=== PATIENT | male | born 1960 | race Caucasian/White ===

== ENCOUNTER → 2017-08-10 | Outpatient (CLI) | payer SELFPAY ==
--- NOTE | 2017-08-10 17:01 | US ---
EXAMINATION TYPE: US thyroid st tissue head/neck DATE OF EXAM: 08/10/2017 COMPARISON: NONE CLINICAL HISTORY: R59.0 Cervial Lymphadenopathy. Hypervascular submandibular lymph node measuring 1.2 x 0.9 x 1.3cm Exam is limited to the submandibular region which was the area of concern. A single right-sided subma ndibular lymph node is demonstrated that measures 12 x 9 mm and shows relative hyperemia. No other so lid or cystic masses identified. CONCLUSION: Single right-sided submandibular lymph node with increased vascularity.
== END | disposition home or self-care (01) ==
LOC: RADUSMAIN 15:49
PROVIDERS: ATTEND Family Medicine
DX: R59.0 Localized enlarged lymph nodes (principal)
CPT/HCPCS: 76536

== ENCOUNTER → 2017-09-25 | Outpatient (CLI) | payer SELFPAY ==
--- NOTE | 2017-09-26 08:55 | CT ---
EXAMINATION TYPE: CT ChestAbdPelvis w con DATE OF EXAM: 09/25/2017 INDICATION: Observation for mets, Recent lymphoma diagnosis COMPARISON: NONE CT DLP: 1856 mGycm CONTRAST: Performed with Oral Contrast and with IV Contrast, patient injected with 100 mL of Isovue 300. TECHNIQUE: Axial images at 5 mm thick sections. Reconstructed images in the coronal plane. Delayed images through the kidneys. FINDINGS: CT CHEST: Distal left jugular vein appears prominent. Portion of the thyroid visualized is normal. No suspicious axillary adenopathy is evident. Supraclavi cular regions appear within normal limits. No suspicious lung nodules or focal infiltrates are present. There is a 1.1 cm pretracheal lymph node. No enlarged hilar or subcarinal lymphadenopathy is evident. The ascending aorta diameter at the level of the main pulmonary artery is 3.2 cm. The main pulmonary artery diameter at the bifurcation is 2.[address] ABDOMEN: Liver: There is a 0.6 cm hypodensity within the mid medial right lobe liver. This may be a hepatic cy st. Other etiologies are not excluded. Additional similar hypodensity measuring 0.6 cm in the inferio r right lobe liver. Spleen: Normal Pancreas: Normal Adrenal glands: The adrenal glands are normal. Gallbladder: Normal Kidneys: No masses are evident. No hydronephrosis is present. No cysts are present. Delayed images were obtained through the kidneys, which remain unremarkable. There is a right retrocaval renal anthony ry. Aorta: Normal . A few periaortic small shotty lymph nodes may be present. Enlarged adenopathy is not identified. Inferior vena cava: Normal. CT PELVIS: No suspicious pelvic adenopathy is evident. Inguinal regions without enlarged lymphadenopa thy. A few shoddy lymph nodes are in the inguinal region. Loops of bowel within the abdomen and pelvis are normal. There are loops of bowel which are incom pletely distended or lack oral contrast limiting their evaluation. Fecal bolus at the level of the re ctum. Appendix: Normal as visualized. Urinary bladder: Normal. Genitourinary structures: Prostate is prominent mass some inferior depression of the urinary bladder. Osseous structures: No suspicious lytic or sclerotic lesions. Facet changes are in the lower lumbar s pine. IMPRESSIONS: 1. There is a 1.1 cm lymph node in the pretracheal space. 2. Additional enlarged lymphadenopathy is not identified within the chest abdomen or pelvis. PET CT m ay be more sensitive for more subtle lymphoma involved lymph nodes.
== END ==
LOC: RADCTMAIN 17:11
PROVIDERS: ATTEND Internal Medicine Hematology & Oncology
DX: Z03.89 Encounter for observation for other suspected diseases and conditions ruled out (principal); C82.11 Follicular lymphoma grade II, lymph nodes of head, face, and neck
CPT/HCPCS: 71260; 74177; Q9967

== ENCOUNTER → 2021-10-25 | Outpatient (CLI) | payer BC ==
--- NOTE | 2021-10-25 10:28 | CT ---
EXAMINATION TYPE: CT ChestAbdPelvis w con CT DLP: 2219.7 (neck chest abd pelvis) mGycm, Automated exposure control for dose reduction was used. 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 Two-dimensional coronal and sagittal reconstructions were obtained. Findings: CHEST: LUNGS/ PLEURA: The lung parenchyma appears unremarkable. AIRWAY: Patent and unremarkable.. HEART: Size within normal limits. MEDIASTINUM: No gross evidence of adenopathy. VASCULATURE: No aortic aneurysm. MUSCULOSKELETAL: No acute osseous abnormalities. SOFT TISSUES/LYMPH NODES: Interval increase in size of bilateral axillary lymph nodes when compared t o an 2018, example includes a right lymph node measuring up to 14 mm in short axis previously 7 mm. O n the left example includes a 14 mm in short axis, previously 7 mm. ABDOMEN: ABDOMEN LIVER: Scattered hypodensities consistent with cysts. GALLBLADDER AND BILE DUCTS: Unremarkable. PANCREAS: Unremarkable. SPLEEN: Unremarkable. ADRENAL GLANDS: Unremarkable. KIDNEYS AND URETERS: No evidence of hydronephrosis or renal calculus. The ureters are unremarkable. PELVIS BLADDER: Unremarkable REPRODUCTIVE: Prostate is enlarged in size measuring 5.2 cm in transverse dimension. ABDOMEN & PELVIS STOMACH AND BOWEL: Appendix is normal. Scattered diverticula are noted throughout the colon. No evide nce of bowel obstruction. PERITONEUM: No evidence of pneumoperitoneum or free fluid. VASCULATURE: No evidence of aortic aneurysm. MUSCULOSKELETAL: No acute osseous abnormalities. Stable T11 area of subtle sclerosis measuring up to 15 mm. Stable bony islands within the L2 vertebrae. LYMPH NODES: Interval increase in size of periaortic lymph nodes comparing to 2018 measuring up to 12 mm in short axis in the left periaortic region as well as a bilateral common iliac artery lymph node measuring up to 8 mm in short axis on the left and 10 mm in short axis on the right. SOFT TISSUE/ABDOMINAL WALL: Unremarkable IMPRESSION: Enlarging bilateral axillary and periaortic and bilateral common iliac artery lymph nodes concerning for recurrent disease. Further workup is with nuclear medicine CT PET is recommended.
--- NOTE | 2021-10-25 10:28 | CT ---
EXAMINATION TYPE: CT soft tissue neck w con CT DLP: 2219.7 (neck chest abd pelvis) mGycm, Automated exposure control for dose reduction was used. DATE OF EXAM: 10/25/2021 10:08 AM COMPARISON: None. 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 Axial sections with coronal and sagittal reformats were obtained. FINDINGS: Brain: Visualized portions are grossly unremarkable. Orbits: Unremarkable Sinuses: Grossly unremarkable. Spaces of the neck: Clear and symmetric. Musculoskeletal: No acute osseous pathology. Lymph nodes: Multiple nonenlarged lymph nodes are seen along both anterior chains of the neck. Vascular structures: Visualized major arteries are patent without evidence of aneurysm. Thoracic Inlet/airway: Airway is patent. The lung apices are clear. Soft tissues/Thyroid: Thyroid and remainder of the soft tissues are unremarkable. Other: none. IMPRESSION No definite evidence for lymphadenopathy. No acute abnormality.
== END | disposition home or self-care (01) ==
LOC: RADCTMAIN 07:26
PROVIDERS: ATTEND Internal Medicine Hematology & Oncology
DX: C82.11 Follicular lymphoma grade II, lymph nodes of head, face, and neck (principal)
CPT/HCPCS: 70491; 71260; 74177; Q9967

== ENCOUNTER → 2022-08-03 | Outpatient (CLI) | payer BC ==
--- NOTE | 2022-08-03 12:06 | CT ---
EXAMINATION TYPE: CT ChestAbdPelvis w con, CT soft tissue neck w con CT DLP: 1781 mGycm, Automated exposure control for dose reduction was used. DATE OF EXAM: 08/03/2022 11:17 AM COMPARISON: 10/25/2021. CLINICAL INDICATION:Male, 62 years old with history of CT; h/o lymphoma f/u (accession [id number]), h/o lymphoma, f/u (accession [id number]) Technique: Multiple axial images of the chest, abdomen, and pelvis were obtained. Two-dimensional cor onal and sagittal reconstructions were obtained. Imaging of the neck was performed with sagittal and coronal reformats. Contrast used:100 mL of Isovue 300 with IV Contrast, Oral contrast used: with Oral Contrast Findings: NECK: Brain: Visualized portions are grossly unremarkable. Orbits: Unremarkable Sinuses: Grossly unremarkable. Spaces of the neck: Clear and symmetric. Musculoskeletal: No acute osseous pathology. Lymph nodes: Multiple nonenlarged lymph nodes are seen along both anterior chains of the neck. Vascular structures: Visualized major arteries are patent without evidence of aneurysm. Thoracic Inlet/airway: Airway is patent. The lung apices are clear. Soft tissues/Thyroid: Thyroid and remainder of the soft tissues are unremarkable. Other: none. CHEST: LUNGS/ PLEURA: The lung parenchyma appears unremarkable. AIRWAY: Patent and unremarkable.. HEART: Size within normal limits. MEDIASTINUM: No gross evidence of adenopathy. VASCULATURE: No aortic aneurysm. MUSCULOSKELETAL: No acute osseous abnormalities. SOFT TISSUES/LYMPH NODES: Stable from 10/25/2021, example includes a right lymph node measuring up to 11 mm in short axis previously 11 mm. On the left example includes a 9 mm in short axis, previously 9 mm. The remainder of the lymph node is not definitively have similar morphology to prior on 5. ABDOMEN: ABDOMEN LIVER: Scattered hypodensities consistent with cysts. GALLBLADDER AND BILE DUCTS: Unremarkable. PANCREAS: Unremarkable. SPLEEN: Unremarkable. ADRENAL GLANDS: Unremarkable. KIDNEYS AND URETERS: No evidence of hydronephrosis or renal calculus. The ureters are unremarkable. PELVIS BLADDER: Unremarkable REPRODUCTIVE: Prostate is enlarged in size measuring 5.2 cm in transverse dimension. ABDOMEN & PELVIS STOMACH AND BOWEL: Appendix is normal. Scattered diverticula are noted throughout the colon. No evide nce of bowel obstruction. PERITONEUM: No evidence of pneumoperitoneum or free fluid. VASCULATURE: No evidence of aortic aneurysm. MUSCULOSKELETAL: No acute osseous abnormalities. Stable T11 area of subtle sclerosis measuring up to 15 mm. Stable bony islands within the L2 vertebrae. LYMPH NODES: Stable retroperitoneal lymph nodes 8 mm lymph node left side of the aorta just prior to the bifurcation. Left external iliac lymph node is stable measuring 11 mm in short axis and a right e xternal iliac lymph node measures similarly at 7 mm. The inguinal lymph nodes appear similar. SOFT TISSUE/ABDOMINAL WALL: Unremarkable IMPRESSION: Stable appearance of the thorax and abdominal/pelvic lymph nodes. No new or enlarging lymph nodes def initively visualized. No evidence for lymphadenopathy within the neck.
== END | disposition home or self-care (01) ==
LOC: RADCTMAIN 09:07
PROVIDERS: ATTEND Internal Medicine Hematology & Oncology
DX: C82.11 Follicular lymphoma grade II, lymph nodes of head, face, and neck (principal); Z03.89 Encounter for observation for other suspected diseases and conditions ruled out
CPT/HCPCS: 70491; 71260; 74177; Q9967